=== PATIENT | female | born 1995 | race African-American/Black ===

== ENCOUNTER 2020-07-01 00:04 | Inpatient (IN) ==
[2020-07-01] MEDS ORDERED: MEPERIDINE 50 MG/1 ML VIAL IV PRN (00:16)
[2020-07-01] MEDS ORDERED: BUTORPHANOL 2 MG/ML VIAL IV PRN (00:16)
[2020-07-01] MEDS ORDERED: ONDANSETRON 4 MG/2 ML VIAL IV PRN (00:16)
[2020-07-01] MEDS ORDERED: LACTATED RINGERS 1,000 ML IV SCH (00:30)
[2020-07-01 01:11] LABS: Basophils % 0.1 % (0.0-0.8); Eosinophils % 0.4 % (0.00-10.9); Hematocrit 35.3 VOL% (35.7-47.0); Immature Granulocytes % 1.1 %; Immature Granulocytes Absolute 0.11 #; Lymphocytes # 2.2 10*3/uL (1.4-4.0); Lymphocytes % 22.9 % (21.3-54.2); Mean Corpuscular HGB Conc 31.2 GM/DL (32-36); Mean Corpuscular Volume 89.4 FL (87-102); Mean Platelet Volume 11.4 FL (9.6-12.0); Monocytes % 7.6 % (1.7-12.7); Neutrophils % 67.9 % (38.7-73.9); Platelet Count 249 T/CUMM (130-400); Red Blood Count 3.95 MC/CUMM (3.8-5.5); Red Cell Distribution Width 16.1 % (9.3-17.3); White Blood Count 9.7 T/CUMM (4-12)
[2020-07-01 01:37] LABS: Alanine Aminotransferase 21 U/L (13-56); Albumin 2.5 G/DL (3.4-5.0); Alkaline Phosphatase 109 U/L (45-117); Aspartate Amino Transferase 33 U/L (0-37); Bilirubin,Total < 0.39 MG/DL (0.2-1.0); Blood Urea Nitrogen 9 MG/DL (7-18); Calcium 9.2 MG/DL (8.5-10.1); Estimated Glom Filtration Rate 199 ML/MIN; Glucose 111 MG/DL (74-106); Osmolality,Calculated 276.5 MOS/KG (273-304); Total Protein 6.9 G/DL (6.4-8.3)
[2020-07-01] MEDS ORDERED: PROMETHAZINE 25 MG/1 ML VIAL IM ONE (06:32)
[2020-07-01] MEDS ORDERED: diphenhydrAMINE 50 MG/1 ML VIAL IV PRN ×2 (06:32)
[2020-07-01] MEDS ORDERED: ePHEDrine 50 MG/ML VIAL IV PRN (06:32)
[2020-07-01] MEDS ORDERED: hydrOXYzine HCL 25 MG/1 ML VIAL IM PRN (06:32)
[2020-07-01] MEDS ORDERED: LACTATED RINGERS 1,000 ML IV ONE (06:32)
[2020-07-01] MEDS ORDERED: FAMOTIDINE 20 MG/2 ML VIAL IV ONE (06:32)
[2020-07-01] MEDS ORDERED: CITRIC ACID/SODIUM CITRATE 30 ML UDCUP PO ONE (06:32)
[2020-07-01] MEDS ORDERED: NALOXONE 0.4 MG/ML VIAL IV PRN (06:32)
[2020-07-01] MEDS ORDERED: fentaNYL 2 MCG/ROPIV 0.2% EPID 100 ML EPIDURAL SCH (07:00)
[2020-07-01] MEDS ORDERED: OXYTOCIN/LR 20 UNIT/1,000 ML BAG IV SCH (10:30)
[2020-07-01 11:43] LABS: Bilirubin,Urine Negative (Negative); Blood, Urine Moderate mg/dL (Negative); Glucose,Urine (UA) Negative (Negative); Ketones,Urine Negative (Negative); Nitrite,Urine Negative (Negative); Protein,Urine Negative; RBC,Urine 4 /HPF (0-4); Urine Appearance CLEAR (Clear); Urine Color Yellow (Yellow); Urine Specific Gravity 1.017 (1.001-1.035); Urine Urobilinogen < 2.0 EU/DL (0.2-1.0); WBC,Urine <1 /HPF (0-6)
[2020-07-01] MEDS ORDERED: METHYLERGONOVINE 0.2 MG/1 ML AMP ONE (11:43)
[2020-07-01] MEDS ORDERED: miSOPROStoL 200 MCG TABLET ONE (11:43)
[2020-07-01] MEDS ORDERED: CARBOPROST TROMETHAMINE 250 MCG/ML AMP IM ONE (11:43)
[2020-07-01] MEDS ORDERED: TRANEXAMIC ACID 1,000 MG/10 ML VIAL ONE (11:43)
[2020-07-01] MEDS ORDERED: SODIUM CHLORIDE 0.9% 0 ML IV ONE (11:44)
[2020-07-01 12:34] LABS: Cord Arterial Blood HCO3 16.5 MMOL/L; Cord Venous Blood HCO3 23.6 MMOL/L; Cord Venous Blood PO2 20.8 MMHG
[2020-07-01] MEDS ORDERED: OXYTOCIN/LR 20 UNIT/1,000 ML BAG IV ONE ×2 (15:27→16:04)
[2020-07-01] MEDS ORDERED: LANOLIN 50% CREAM 0.3 OZ TUBE TOP PRN (16:04)
[2020-07-01] MEDS ORDERED: BENZOCAINE 20%/MENTHOL 0.5% SPRAY 56 GM CAN TOP PRN (16:04)
[2020-07-01] MEDS ORDERED: BISACODYL 10 MG SUPP RECTAL PRN (16:04)
[2020-07-01] MEDS ORDERED: DIPH/TET/ACEL PERT BOOSTER VACCINE 0.5 ML VIAL IM ONE (16:04)
[2020-07-01] MEDS ORDERED: RHO(D) IMMUNE GLOBULIN 300 MCG SYRINGE IM ONE (16:04)
[2020-07-01] MEDS ORDERED: MEASLES/MUMPS/RUBELLA VACCINE 0.5 ML VIAL SUBCUT ONE (16:04)
[2020-07-01] MEDS ORDERED: ACETAMINOPHEN 325 MG TABLET PO PRN (16:04)
[2020-07-01] MEDS ORDERED: WITCH HAZEL PADS 100/JAR TOP PRN (16:04)
[2020-07-01] MEDS ORDERED: HYDROCORTISONE 2.5% RECTAL CREAM 30 GM TUBE TOP PRN (16:04)
[2020-07-01] MEDS ORDERED: oxyCODONE/ACETAMINOPHEN 5-325 MG TABLET PO PRN ×2 (16:04→20:29)
[2020-07-01] MEDS: oxyCODONE/ACETAMINOPHEN 5-325 MG TABLET PO PRN (16:15)
[2020-07-01] MEDS: IBUPROFEN 800 MG TABLET PO PRN ×2 (16:15→23:20)
[2020-07-01] MEDS: ALUMINUM/MAGNES/SIMETH MAX STR 30 ML UDCUP PO PRN (17:21)
[2020-07-01] MEDS: DOCUSATE SODIUM 100 MG CAPSULE PO SCH (20:30)
[2020-07-02] MEDS: ALUMINUM/MAGNES/SIMETH MAX STR 30 ML UDCUP PO PRN (05:48)
[2020-07-02 06:07] LABS: Basophils % 0.2 % (0.0-0.8); Eosinophils # 0.1 10*3/uL (0.0-0.87); Eosinophils % 0.5 % (0.00-10.9); Hematocrit 32.7 VOL% (35.7-47.0); Hemoglobin 10.4 GM/DL (12.0-16.0); Immature Granulocytes % 0.7 %; Lymphocytes # 1.7 10*3/uL (1.4-4.0); Mean Corpuscular HGB Conc 31.8 GM/DL (32-36); Mean Corpuscular Volume 89.1 FL (87-102); Mean Platelet Volume 11.2 FL (9.6-12.0); Monocytes % 7.5 % (1.7-12.7); Neutrophils % 79.1 % (38.7-73.9); Platelet Count 231 T/CUMM (130-400); Red Blood Count 3.67 MC/CUMM (3.8-5.5); Red Cell Distribution Width 16.1 % (9.3-17.3); White Blood Count 14.2 T/CUMM (4-12)
[2020-07-02] MEDS: IBUPROFEN 800 MG TABLET PO PRN ×2 (06:42→18:10)
[2020-07-02] MEDS: oxyCODONE/ACETAMINOPHEN 5-325 MG TABLET PO PRN ×3 (06:42→18:10)
[2020-07-02] MEDS: DOCUSATE SODIUM 100 MG CAPSULE PO SCH ×3 (08:52→20:38)
[2020-07-03] MEDS: oxyCODONE/ACETAMINOPHEN 5-325 MG TABLET PO PRN ×2 (03:44→14:44)
[2020-07-03] MEDS: IBUPROFEN 800 MG TABLET PO PRN ×2 (03:44→09:45)
[2020-07-03] MEDS: DOCUSATE SODIUM 100 MG CAPSULE PO SCH (08:15)
[2020-07-03 13:12] VITALS: BP 133/69
== END 2020-07-03 16:00 | disposition home or self-care (01) | DRG 807 ==
LOC: N.LDOUT 00:04 → N.LD 00:06 → N.OB 16:06
PROVIDERS: ADMIT Obstetrics & Gynecology; ATTEND Obstetrics & Gynecology

== ENCOUNTER 2021-05-24 15:46 | Inpatient (IN) ==
[2021-05-24] MEDS ORDERED: ONDANSETRON 4 MG/2 ML VIAL IV PRN (17:51)
[2021-05-24 18:16] LABS: Basophils % 0.1 % (0.0-0.8); Eosinophils # 0.1 10*3/uL (0.0-0.87); Eosinophils % 0.7 % (0.00-10.9); Hematocrit 30.3 VOL% (35.7-47.0); Hemoglobin 9.2 GM/DL (12.0-16.0); Immature Granulocytes % 1.3 %; Immature Granulocytes Absolute 0.12 #; Lymphocytes # 1.6 10*3/uL (1.4-4.0); Lymphocytes % 17.3 % (21.3-54.2); Mean Corpuscular HGB Conc 30.4 GM/DL (32-36); Mean Corpuscular Volume 84.6 FL (87-102); Mean Platelet Volume 10.5 FL (9.6-12.0); Monocytes % 6.4 % (1.7-12.7); Neutrophils % 74.2 % (38.7-73.9); Platelet Count 256 T/CUMM (130-400); Red Blood Count 3.58 MC/CUMM (3.8-5.5); Red Cell Distribution Width 15.1 % (9.3-17.3)
[2021-05-24] MEDS: valACYclovir 500 MG TABLET PO ONE ×2 (19:45→21:26)
[2021-05-24] MEDS ORDERED: ursodioL 300 MG CAPSULE PO SCH (21:00)
[2021-05-24] MEDS: LACTATED RINGERS 1,000 ML IV SCH (21:29)
[2021-05-25] MEDS: LACTATED RINGERS 1,000 ML IV SCH ×2 (00:11→02:35)
[2021-05-25] MEDS: MEPERIDINE 50 MG/1 ML VIAL IV PRN ×2 (00:17→02:22)
[2021-05-25] MEDS ORDERED: PROMETHAZINE 25 MG/1 ML VIAL IM PRN (01:40)
[2021-05-25] MEDS ORDERED: ePHEDrine 50 MG/ML VIAL IV PRN (01:40)
[2021-05-25] MEDS ORDERED: NALOXONE 0.4 MG/ML VIAL IV PRN (01:40)
[2021-05-25] MEDS ORDERED: diphenhydrAMINE 50 MG/1 ML VIAL IV PRN (01:40)
[2021-05-25] MEDS ORDERED: hydrOXYzine HCL 25 MG/1 ML VIAL IM PRN (01:40)
[2021-05-25] MEDS ORDERED: FAMOTIDINE 20 MG/2 ML VIAL IV ONE (01:40)
[2021-05-25] MEDS ORDERED: CITRIC ACID/SODIUM CITRATE 30 ML UDCUP PO ONE (01:40)
[2021-05-25] MEDS ORDERED: LACTATED RINGERS 1,000 ML IV SCH (02:00)
[2021-05-25] MEDS ORDERED: fentaNYL 2 MCG/ROPIV 0.2% EPID 100 ML EPIDURAL SCH (02:00)
[2021-05-25 04:16] LABS: Bacteria,Urine Occasional /HPF (Few); Bilirubin,Urine Negative (Negative); Blood, Urine Small mg/dL (Negative); Glucose,Urine (UA) Negative (Negative); Ketones,Urine Negative (Negative); Mucus,Urine Occasional /LPF (Occasional); Nitrite,Urine Negative (Negative); Protein,Urine Negative; RBC,Urine 3 /HPF (0-4); Squamous Epithelial Cell,Urine Occasional /HPF (0-10); Urine Appearance CLEAR (Clear); Urine Color Yellow (Yellow); Urine Specific Gravity 1.014 (1.001-1.035); Urine Urobilinogen < 2.0 EU/DL (0.2-1.0)
[2021-05-25] MEDS ORDERED: OXYTOCIN/LR 20 UNIT/1,000 ML BAG IV ONE ×2 (05:12→05:41)
[2021-05-25] MEDS ORDERED: TRANEXAMIC ACID 1,000 MG/10 ML VIAL ONE (05:12)
[2021-05-25] MEDS ORDERED: miSOPROStoL 200 MCG TABLET ONE (05:12)
[2021-05-25] MEDS ORDERED: miSOPROStoL 200 MCG TABLET PO ONE (05:28)
[2021-05-25] MEDS ORDERED: BISACODYL 10 MG SUPP RECTAL PRN (05:41)
[2021-05-25] MEDS ORDERED: RHO(D) IMMUNE GLOBULIN 300 MCG SYRINGE IM ONE (05:41)
[2021-05-25] MEDS ORDERED: ONDANSETRON 4 MG/2 ML VIAL IV PRN (05:41)
[2021-05-25] MEDS ORDERED: MEASLES/MUMPS/RUBELLA VACCINE 0.5 ML VIAL SUBCUT ONE (05:41)
[2021-05-25] MEDS ORDERED: BENZOCAINE 20%/MENTHOL 0.5% SPRAY 56 GM CAN TOP PRN (05:41)
[2021-05-25] MEDS ORDERED: HYDROCORTISONE 2.5% RECTAL CREAM 30 GM TUBE TOP PRN (05:41)
[2021-05-25] MEDS ORDERED: WITCH HAZEL PADS 100/JAR TOP PRN (05:41)
[2021-05-25] MEDS ORDERED: ACETAMINOPHEN 325 MG TABLET PO PRN (05:41)
[2021-05-25] MEDS ORDERED: oxyCODONE/ACETAMINOPHEN 5-325 MG TABLET PO PRN (05:41)
[2021-05-25] MEDS ORDERED: DIPH/TET/ACEL PERT BOOSTER VACCINE 0.5 ML VIAL IM ONE (05:41)
[2021-05-25] MEDS ORDERED: LANOLIN 50% CREAM 0.3 OZ TUBE TOP PRN (05:41)
[2021-05-25 06:10] LABS: Cord Arterial Blood HCO3 17.4 MMOL/L
[2021-05-25 06:11] LABS: Cord Venous Blood HCO3 24.2 MMOL/L; Cord Venous Blood PCO2 67.8 MMHG; Cord Venous Blood PO2 20.3 MMHG
[2021-05-25] MEDS: IBUPROFEN 800 MG TABLET PO PRN ×3 (07:11→21:02)
[2021-05-25] MEDS ORDERED: ursodioL 300 MG CAPSULE PO SCH (09:30)
[2021-05-25] MEDS: DOCUSATE SODIUM 100 MG CAPSULE PO SCH ×2 (10:02→21:01)
[2021-05-25] MEDS: oxyCODONE/ACETAMINOPHEN 5-325 MG TABLET PO PRN ×2 (16:23→23:08)
[2021-05-25] MEDS ORDERED: diphenhydrAMINE CAP 25 MG CAPSULE PO PRN (16:24)
[2021-05-26] MEDS: oxyCODONE/ACETAMINOPHEN 5-325 MG TABLET PO PRN ×3 (03:56→23:04)
[2021-05-26 04:10] LABS: Basophils % 0.2 % (0.0-0.8); Eosinophils # 0.1 10*3/uL (0.0-0.87); Eosinophils % 0.8 % (0.00-10.9); Hematocrit 24.4 VOL% (35.7-47.0); Immature Granulocytes Absolute 0.09 #; Lymphocytes # 2.6 10*3/uL (1.4-4.0); Lymphocytes % 28.3 % (21.3-54.2); Mean Corpuscular HGB Conc 29.9 GM/DL (32-36); Mean Corpuscular Volume 85.9 FL (87-102); Mean Platelet Volume 10.7 FL (9.6-12.0); Monocytes % 6.9 % (1.7-12.7); Neutrophils % 62.8 % (38.7-73.9); Platelet Count 215 T/CUMM (130-400); Red Cell Distribution Width 15.2 % (9.3-17.3); White Blood Count 9.1 T/CUMM (4-12)
[2021-05-26 04:12] LABS: Hemoglobin 7.3 GM/DL (12.0-16.0); Red Blood Count 2.84 MC/CUMM (3.8-5.5)
[2021-05-26 04:26] LABS: Eosinophils 2 % (0-10); Hypochromasia 1+; Lymphocytes 22 % (20-55); Microcytosis 1+; Platelet Estimate Adequate; Segmented Neutrophils 74 % (50-85); Total Cells Counted 100
[2021-05-26] MEDS: DOCUSATE SODIUM 100 MG CAPSULE PO SCH ×2 (09:00→21:27)
[2021-05-26] MEDS: FERROUS SULFATE 325 MG TABLET PO SCH ×2 (09:01→21:27)
[2021-05-26] MEDS: IBUPROFEN 800 MG TABLET PO PRN ×2 (09:01→21:26)
[2021-05-26] MEDS ORDERED: MAGNESIUM HYDROXIDE SUSP 30 ML UDCUP PO PRN (21:19)
[2021-05-27 08:25] VITALS: BP 131/70
[2021-05-27] MEDS: FERROUS SULFATE 325 MG TABLET PO SCH (09:23)
[2021-05-27] MEDS: oxyCODONE/ACETAMINOPHEN 5-325 MG TABLET PO PRN (09:24)
[2021-05-27] MEDS: DOCUSATE SODIUM 100 MG CAPSULE PO SCH (09:27)
== END 2021-05-27 13:00 | disposition home or self-care (01) | DRG 560 ==
LOC: N.LDOUT 15:46 → N.LD 15:48 → N.OB 05-25 11:20
PROVIDERS: ADMIT Obstetrics & Gynecology; ATTEND Obstetrics & Gynecology

== ENCOUNTER 2021-06-04 07:41 | Inpatient (IN) ==
[2021-06-04] MEDS ORDERED: HYDROmorphone 2 MG/1 ML VIAL IV STA (08:06)
[2021-06-04] MEDS ORDERED: ONDANSETRON 4 MG/2 ML VIAL IV STA (08:06)
[2021-06-04 08:25] LABS: Basophils % 0.1 % (0.0-0.8); Eosinophils # 0.1 10*3/uL (0.0-0.87); Eosinophils % 1.2 % (0.00-10.9); Hematocrit 31.8 VOL% (35.7-47.0); Hemoglobin 9.3 GM/DL (12.0-16.0); Immature Granulocytes % 0.3 %; Immature Granulocytes Absolute 0.02 #; Lymphocytes # 1.7 10*3/uL (1.4-4.0); Lymphocytes % 24.2 % (21.3-54.2); Mean Corpuscular HGB Conc 29.2 GM/DL (32-36); Mean Platelet Volume 9.8 FL (9.6-12.0); Monocytes % 7.8 % (1.7-12.7); Neutrophils % 66.4 % (38.7-73.9); Platelet Count 391 T/CUMM (130-400); Red Blood Count 3.74 MC/CUMM (3.8-5.5); Red Cell Distribution Width 15.3 % (9.3-17.3); White Blood Count 6.9 T/CUMM (4-12)
[2021-06-04] MEDS ORDERED: SODIUM CHLORIDE 0.9% 1,000 ML IV STA (08:26)
[2021-06-04 08:48] LABS: Bilirubin,Total 0.6 MG/DL (0.20-1.00); Calcium 8.6 MG/DL (8.5-10.1); Osmolality,Calculated 281.1 MOS/KG (273-304); Potassium 3.5 MMOL/L (3.5-5.1); Total Protein 7.4 G/DL (6.4-8.2)
[2021-06-04] MEDS ORDERED: diphenhydrAMINE 50 MG/1 ML VIAL IV STA (09:50)
[2021-06-04] MEDS ORDERED: ONDANSETRON 4 MG/2 ML VIAL IV PRN (09:54)
[2021-06-04 10:34] LABS: Bilirubin,Direct 0.34 MG/DL (0.0-0.20); Bilirubin,Indirect 0.3 MG/DL (0.0-1.0); Bilirubin,Total 0.6 MG/DL (0.20-1.00); Total Protein 7.4 G/DL (6.4-8.2)
[2021-06-04 10:38] LABS: Bacteria,Urine Occasional /HPF (Few); Bilirubin,Urine Negative (Negative); Blood, Urine Small mg/dL (Negative); Glucose,Urine (UA) Negative (Negative); Ketones,Urine Negative (Negative); Mucus,Urine Occasional /LPF (Occasional); Nitrite,Urine Negative (Negative); Protein,Urine Negative; RBC,Urine 5 /HPF (0-4); Squamous Epithelial Cell,Urine Occasional /HPF (0-10); Urine Appearance CLEAR (Clear); Urine Color Yellow (Yellow); Urine Specific Gravity 1.017 (1.001-1.035)
[2021-06-04] MEDS: DEXTROSE 5% NACL 0.45% 1,000 ML IV SCH ×2 (14:54→21:57)
[2021-06-04] MEDS: HYDROmorphone 2 MG/1 ML VIAL IV PRN ×2 (15:40→21:57)
[2021-06-04] MEDS: diphenhydrAMINE CAP 25 MG CAPSULE PO PRN (22:41)
[2021-06-05] MEDS: DEXTROSE 5% NACL 0.45% 1,000 ML IV SCH ×2 (03:14→19:00)
[2021-06-05] MEDS: ENOXAPARIN 40 MG/0.4 ML SYRINGE SUBCUT SCH (03:14)
[2021-06-05] MEDS: diphenhydrAMINE CAP 25 MG CAPSULE PO PRN (06:47)
[2021-06-05] MEDS: HYDROmorphone 2 MG/1 ML VIAL IV PRN (06:47)
[2021-06-05 07:55] LABS: Albumin 2.5 G/DL (3.4-5.0); Bilirubin,Total 0.6 MG/DL (0.20-1.00); Calcium 7.9 MG/DL (8.5-10.1); Osmolality,Calculated 284.8 MOS/KG (273-304); Potassium 3.6 MMOL/L (3.5-5.1); Total Protein 6.3 G/DL (6.4-8.2)
[2021-06-05 09:24] LABS: Alanine Aminotransferase 58 U/L (13-56); Albumin 2.4 G/DL (3.4-5.0); Alkaline Phosphatase 129 U/L (45-117); Aspartate Amino Transferase 49 U/L (0-37); Bilirubin,Direct < 0.100 MG/DL (0.0-0.20); Bilirubin,Indirect 0.3 MG/DL (0.0-1.0); Bilirubin,Total < 0.39 MG/DL (0.20-1.00); Total Protein 6.3 G/DL (6.4-8.2)
[2021-06-05] MEDS: PANTOPRAZOLE 40 MG VIAL IV SCH (10:12)
[2021-06-06] MEDS: HYDROmorphone 2 MG/1 ML VIAL IV PRN ×4 (02:17→20:39)
[2021-06-06] MEDS: diphenhydrAMINE CAP 25 MG CAPSULE PO PRN ×4 (02:59→20:39)
[2021-06-06] MEDS: DEXTROSE 5% NACL 0.45% 1,000 ML IV SCH ×3 (03:02→23:27)
[2021-06-06] MEDS: ENOXAPARIN 40 MG/0.4 ML SYRINGE SUBCUT SCH (03:26)
[2021-06-06 06:26] LABS: Basophils % 0.4 % (0.0-0.8); Eosinophils # 0.1 10*3/uL (0.0-0.87); Eosinophils % 1.9 % (0.00-10.9); Hematocrit 28.9 VOL% (35.7-47.0); Hemoglobin 8.4 GM/DL (12.0-16.0); Immature Granulocytes % 0.4 %; Immature Granulocytes Absolute 0.02 #; Lymphocytes % 37.4 % (21.3-54.2); Mean Corpuscular HGB Conc 29.1 GM/DL (32-36); Mean Corpuscular Volume 85.5 FL (87-102); Monocytes % 6.2 % (1.7-12.7); Neutrophils % 53.7 % (38.7-73.9); Platelet Count 363 T/CUMM (130-400); Red Blood Count 3.38 MC/CUMM (3.8-5.5); Red Cell Distribution Width 15.3 % (9.3-17.3); White Blood Count 5.3 T/CUMM (4-12)
[2021-06-06 06:54] LABS: Alanine Aminotransferase 42 U/L (13-56); Albumin 2.7 G/DL (3.4-5.0); Alkaline Phosphatase 130 U/L (45-117); Aspartate Amino Transferase 28 U/L (0-37); Bilirubin,Total < 0.39 MG/DL (0.20-1.00); Blood Urea Nitrogen 8 MG/DL (7-18); Calcium 8.4 MG/DL (8.5-10.1); Carbon Dioxide 30 MMOL/L (21-32); Estimated Glom Filtration Rate 154 ML/MIN; Glucose 91 MG/DL (74-106); Osmolality,Calculated 283.8 MOS/KG (273-304); Potassium 3.5 MMOL/L (3.5-5.1); Sodium 144 MMOL/L (136-145); Total Protein 6.7 G/DL (6.4-8.2)
[2021-06-06 07:06] LABS: Eosinophils 1 % (0-10); Lymphocytes 38 % (20-55); Segmented Neutrophils 58 % (50-85); Total Cells Counted 100
[2021-06-06 07:07] LABS: Hypochromasia 2+; Microcytosis 1+; Platelet Estimate Normal
[2021-06-06] MEDS ORDERED: CLINDAMYCIN INJ 900 MG/50 ML PREMIX IV ONE (07:15)
[2021-06-06] MEDS ORDERED: INDOCYANINE GREEN 25 MG VIAL IV ONE (07:15)
[2021-06-06] MEDS: PANTOPRAZOLE 40 MG VIAL IV SCH (10:29)
[2021-06-06] MEDS ORDERED: propofoL 200 MG/20 ML VIAL IV ONE ×3 (10:55→12:14)
[2021-06-06] MEDS ORDERED: ROCURONIUM 50 MG/5 ML VIAL IV ONE (10:55)
[2021-06-06] MEDS ORDERED: DEXAMETHASONE 4 MG/1 ML VIAL ONE (10:55)
[2021-06-06] MEDS ORDERED: ONDANSETRON 4 MG/2 ML VIAL ONE (10:55)
[2021-06-06] MEDS ORDERED: SEVOFLURANE 1 UNIT/15 MINUTE INH ONE ×3 (10:55→12:47)
[2021-06-06] MEDS ORDERED: LIDOCAINE 2% 5 ML VIAL ONE (10:55)
[2021-06-06] MEDS ORDERED: MIDAZOLAM 2 MG/2 ML VIAL ONE (10:56)
[2021-06-06] MEDS ORDERED: fentaNYL 100 MCG/2 ML VIAL ONE (10:56)
[2021-06-06] MEDS ORDERED: BUPIVACAINE MPF 0.25% 30 ML VIAL ONE (11:11)
[2021-06-06] MEDS ORDERED: TISSUE ADHESIVE 1 EACH APPLICATOR TOP ONE (11:11)
[2021-06-06] MEDS ORDERED: LIDOCAINE 1%/EPI INJ 20 ML VIAL ONE (11:11)
[2021-06-06] MEDS ORDERED: ePHEDrine 50 MG/ML VIAL ONE (12:16)
[2021-06-06] MEDS ORDERED: ACETAMINOPHEN INJ 1,000 MG/100 ML VIAL IV ONE (12:25)
[2021-06-06] MEDS ORDERED: LABETALOL 20 MG/4 ML SYRINGE IV ONE (12:34)
[2021-06-06] MEDS ORDERED: SUGAMMADEX 200 MG/2 ML VIAL IV ONE (12:42)
[2021-06-06] MEDS ORDERED: LACTATED RINGERS 1,000 ML IV ONE (12:45)
[2021-06-06] MEDS ORDERED: IBUPROFEN 800 MG TABLET PO PRN (14:10)
[2021-06-07] MEDS: diphenhydrAMINE CAP 25 MG CAPSULE PO PRN ×2 (01:19→06:33)
[2021-06-07] MEDS: HYDROmorphone 2 MG/1 ML VIAL IV PRN ×2 (01:19→06:33)
[2021-06-07] MEDS: DEXTROSE 5% NACL 0.45% 1,000 ML IV SCH (03:04)
[2021-06-07] MEDS: ENOXAPARIN 40 MG/0.4 ML SYRINGE SUBCUT SCH (03:26)
[2021-06-07] MEDS ORDERED: NON-FORMULARY MEDICATION (Omeprazole 20 mg Capsule,Delayed Release(Dr/Ec)) PO SCH (09:00)
[2021-06-07] MEDS: PANTOPRAZOLE 40 MG VIAL IV SCH (09:24)
[2021-06-07 11:28] VITALS: BP 128/63
== END 2021-06-07 13:30 | disposition home or self-care (01) | DRG 263 ==
LOC: N.ED 07:41 → N.EDINP 09:54 → N.3E 12:59
PROVIDERS: ADMIT Surgery; ATTEND Surgery